=== PATIENT | male | born 1960 | race Caucasian/White ===

== ENCOUNTER 2017-10-18 08:58 | Emergency (ER) | payer SELFPAY ==
[~2017-10-18] VITALS: Ht 172.7 cm; Wt 73.0 kg
[2017-10-18] MEDS ORDERED: TETRACAINE 0.5% OPHTH SOLN 4 ML BTL (SINGLE DOSE ONLY) ONE (09:34)
[2017-10-18] MEDS ORDERED: FLUORESCEIN (FLUOR-I-STRIPS) 1 MG STRP ONE (09:34)
[2017-10-18] MEDS ORDERED: BSS 15 ML ONE (09:34)
[2017-10-18] MEDS ORDERED: RX-GENTAMICIN 0.3% OP OINT 3.5 GM TUBE ONE (09:59)
[2017-10-18] MEDS ORDERED: RX-GENTAMICIN 0.3% OP OINT 3.5 GM TUBE OP STA (10:15)
--- NOTE | 2017-10-18 10:17 | ED EENT ---
History of Present Illness General Chief Complaint: Eye Problems Stated Complaint: LEFT EYE INJ Nursing Triage Note: Pt c/o L eye irritation. Pt reports he got dirt in his eye approx 1 wk ago and is still having burning sensation and blurred vision in that eye, worse at night. Source: patient Exam Limitations: no limitations History of Present Illness Time seen by provider: 10:12 Initial Comments The patient is a 57-year-old white male who reports he was working in the yard a week ago and became clear that something had gotten in his eye. He was wearing safety glasses at the time. He is continued to have burning and discomfort till now. He has not at all clear what this might have been but was not using machinery or instrument lens grinder. Timing/Duration: abrupt Location: eye (L) Allergies and Home Medications Allergies Coded Allergies: No Known Drug Allergies (Unverified , 10/18/17) Home Medications No Active Prescriptions or Reported Meds Review of Systems Constitutional: see HPI Past Apezsxb-Lxjuhg-Mdqvvz Hx Patient Social History Alcohol Use: Rarely Uses Recreational Drug Use: No Smoking Status: Current Everyday Smoker Type Used: Cigarettes Recent Foreign Travel: No Contact w/Someone Who Travel: No Recent Infectious Disease Expo: No Recent Hopitalizations: No Physical Abuse: No Sexual Abuse: No Seasonal Allergies Seasonal Allergies: No Surgeries History of Surgeries: Yes Surgeries: Orthopedic Respiratory History of Respiratory Disorde: No Cardiovascular History of Cardiac Disorders: No Neurological History of Neurological Disord: No Genitourinary History of Genitourinary Disor: No Gastrointestinal History of Gastrointestinal Di: No Musculoskeletal History of Musculoskeletal Dis: No Endocrine History of Endocrine Disorders: No HEENT History of HEENT Disorders: No Cancer History of Cancer: No Psychosocial History of Psychiatric Problem: No Suicide Risk Score: 0 Integumentary History of Skin or Integumenta: No Physical Exam Vital Signs Vital Sign - Last 12Hours 10/18/17 09:14 Temp 98.7 Pulse 81 Resp 18 B/P (MAP) 101/62 Pulse Ox 98 O2 Delivery Room Air General Appearance: WD/WN, no apparent distress, mild distress, moderate distress, severe distress, cachetic Eyes: bilateral eye other Progress/Results/Core Measures Results/Orders My Orders Orders - RENETTA SOL MD Fluorescein Strips ([id number]) (10/18/17 09:34) Tetracaine 0.5% Ophth Connie Sdv (Tetracai (10/18/17 09:34) Balanced Salt Irrigation Soln (Bss Irrig (10/18/17 09:34) Rx-Gentamicin Ophth Oint (Rx-Gentamicin (10/18/17 09:59) Vital Signs/I&O Vital Sign - Last 12Hours 10/18/17 09:14 Temp 98.7 Pulse 81 Resp 18 B/P (MAP) 101/62 Pulse Ox 98 O2 Delivery Room Air Blood Pressure Mean: 75 Departure Communication (Admissions) Progress Notes The eye was anesthetized with tetracaine. Fluoroscein was applied. The eye was then washed with saline. This confirmed the foreign body at 7 o'clock in the left cornea. A search ensued for the drill and ijeoma which were finally located. Additional tetracaine was applied and the FB dislodged with the ijeoma. GENtak ophthalmic ointment was applied Impression Impression: Primary Impression: foreign body left cornea Disposition: 01 HOME, SELF-CARE Condition: Improved Departure-Patient Inst. Decision time for Depature: 10:16 Referrals: NO,LOCAL PHYSICIAN (PCP) Primary Care Physician Patient Instructions: Corneal Abrasion (DC) Add. Discharge Instructions: All discharge instructions reviewed with patient and/or family. Voiced understanding. Apply Gentak ointment as demonstrated 4 times daily. If still troubled by Saturday see jewellery designer Scripts No Active Prescriptions or Reported Meds RENETTA SOL MD Oct 18, 2017 10:17
[2017-10-18 10:31] VITALS: BP 111/68
== END 2017-10-18 10:31 | disposition home or self-care (01) ==
LOC: ER 09:02
DX: T15.02XA Foreign body in cornea, left eye, initial encounter (principal); F17.210 Nicotine dependence, cigarettes, uncomplicated; Z98.890 Other specified postprocedural states
CPT/HCPCS: 99283